=== PATIENT | male | born 1950 | race Caucasian/White ===

== ENCOUNTER 2016-11-26 09:11 | Day surgery (SDC) | payer MEDICARE, OTHER ==
--- NOTE | ~2016-11-26 | EGD ---
EGD REPORT [facility] [address] [address] NAME: LEONARD CAMACHO : [birth year] STATUS : REG [facility]#: [id number] AGE: 65 ADM/REG DATE : 11/26/16 MR#: [id number] REPORT SERV DATE: 11/26/16 DICTATED BY: JUMA GUY DATE: 11/26/16 REPORT STATUS : Draft TRANSCRIBED BY: [facility] DATE: 11/26/16 Endoscopy Center Patient Name: Leonard Camacho Date of : 1950 Attending MD: JUMA GUY MD Procedure Date No Time: 11/26/2016 Procedure: Upper GI endoscopy Indications: Dysphagia, Heartburn, Suspected esophageal reflux Referring MD: Faith Baldwin Medicines: as per anesthesia Complications: No immediate complications. Procedure: After obtaining informed consent, the endoscope was passed under direct vision. Throughout the procedure, the patient's blood pressure, pulse, and oxygen saturations were monitored continuously. The GIF [id number] was introduced through the mouth, and advanced to the third part of duodenum. The upper GI endoscopy was accomplished without difficulty. The patient tolerated the procedure. Findings: The examined esophagus was normal. The scope was withdrawn. Dilation was performed with a Moran dilator with no resistance at 46 Fr. The entire examined stomach was normal. The cardia and gastric fundus were normal on retroflexion. The examined duodenum was normal. Impression: - Normal esophagus. Dilated. - Normal stomach. - Normal examined duodenum. Recommendation: - Follow an antireflux regimen. - Continue present medications. Procedure Code(s): --- Professional --- 53354, Esophagogastroduodenoscopy, flexible, transoral; diagnostic, including collection of specimen(s) by brushing or washing, when performed (separate procedure) 37094, Dilation of esophagus, by unguided sound or bougie, single or multiple passes Diagnosis Code(s): --- Professional --- R13.10, Dysphagia, unspecified R12, Heartburn EGD REPORT [facility] [address] [facility] [place] [address] NAME: LEONARD CAMACHO : [birth year] STATUS : [place] [facility]#: [id number] AGE: 65 ADM/REG DATE : 11/26/16 MR#: [id number] REPORT SERV DATE: 11/26/16 DICTATED BY: JUMA GUY. DATE: 11/26/16 REPORT STATUS : Draft TRANSCRIBED BY: [employer] DATE: 11/26/16 CPT copyright 2013 [employer] [place] [employer]. All rights reserved. The codes documented in this report are preliminary and upon medical biller coder review may be revised to meet current compliance requirements. JUMA GUY MD 11/26/2016 11:23 AM This report has been signed electronically. Number of Addenda: 0 Note Initiated On: 11/26/2016 11:05 AM Scope Withdrawal Time 0 hours 0 minutes 0 seconds [address] [place] [address]
[~2016-11-26 09:11] MED LIST: ADVIL PO; BEN25 PO; CHERRY EXTRACT PO; LIPITOR20 PO; LISINOPRIL40 MG PO; LOFIB160 PO; NEXIUM40 PO; PRINZIDE1 TA1 PO; ZANTAC150 MG PO
[2017-02-08] MEDS ORDERED: NEUR300 PO (09:26)
== END 2016-11-26 23:59 | disposition home or self-care (01) ==
LOC: DMU 09:11
PROVIDERS: Internal Medicine Gastroenterology
PROC: 0DJ08ZZ Inspection of Upper Intestinal Tract, Via Natural or Artificial Opening Endoscopic (ICD-10-PCS; principal; 2016-11-26 09:30)
PROC: 0D757ZZ Dilation of Esophagus, Via Natural or Artificial Opening (ICD-10-PCS; 2016-11-26 09:30)
DX: R13.10 Dysphagia, unspecified (principal); R12 Heartburn; I10 Essential (primary) hypertension; K21.9 Gastro-esophageal reflux disease without esophagitis; Z88.5 Allergy status to narcotic agent; Z88.8 Allergy status to other drugs, medicaments and biological substances; Z79.899 Other long term (current) drug therapy